=== PATIENT | male | born 1960 | race Caucasian/White ===

== ENCOUNTER → 2021-05-18 14:15 | Outpatient (CLI) | payer OTHER, SELFPAY ==
--- NOTE | ~2021-05-18 | XR_ITS ---
EXAMINATION: XR chest 2V DATE: 05/18/2021 14:27 INDICATION: COVID-19 pneumonia. Cough and chest tightness. TECHNIQUE: Frontal and lateral views of the chest were obtained on 3 radiographs. COMPARISON: Chest 2 views 09/25/2008, CT abdomen and pelvis 06/15/2012 FINDINGS: There is mild scarring at right lung apex. There are mild airspace opacities in the mid and lower lung zones bilaterally. No pleural effusion or pneumothorax. The heart size is normal. IMPRESSION: 1. Mild airspace opacities in the mid and lower lung zones, consistent with COVID-19 pneumonia. Reviewed, dictated and finalized at location A. PUSHER IMPRESSION: 1. Mild airspace opacities in the mid and lower lung zones, consistent with COV ID-19 pneumonia.
== END ==
PROVIDERS: PCP Family Medicine; Visit Provider Family Medicine
DX: R05.9 Cough, unspecified (principal); U07.1 COVID-19
CPT/HCPCS: 71046